=== PATIENT | female | born 1955 | race Caucasian/White ===

== ENCOUNTER → 2017-03-22 | Outpatient (CLI) | payer OTHER ==
[~2017-03-22] MED LIST: ALBU8.5H3 INH; ASPI1TAB30 PO; BISA-49 PO; DIAZ10TA4 PO; ESTR1.25 PO; GABA300C10 PO; LEVO88TA2 PO; LORA2TAB PO; MEPE100T14 PO; NA P133E2 PR; ONDA4TAB7 PO; ONDA8TAB9 PO; OXYC15TA PO; OXYC20TA2 PO; PRED10TA14 PO; phenergan PR
== END | disposition home or self-care (01) ==
LOC: CFH 07:21
PROVIDERS: ATTEND Internal Medicine
DX: K22.2 Esophageal obstruction (principal); K21.9 Gastro-esophageal reflux disease without esophagitis
CPT/HCPCS: 74247

== ENCOUNTER 2017-12-04 12:22 | Emergency (ER) | payer OTHER ==
[~2017-12-04] VITALS: Ht 167.6 cm; Wt 60.6 kg
[~2017-12-04 12:22] MED LIST changes: -ALBU8.5H3 INH; +ALBU8.5H8 INH; -ASPI1TAB30 PO; +ASPI1TAB31 PO
[2017-12-04] MEDS ORDERED: ONDANSETRON 2MG/ML, 2ML IVPush ONE (13:00)
[2017-12-04] MEDS ORDERED: SODIUM CHLORIDE 0.9% 1,000ML IVBOLUS ONE (13:00)
[2017-12-04] MEDS ORDERED: ONDANSETRON 2MG/ML, 2ML ONE (13:05)
[2017-12-04 13:08] LABS: BASOPHILS # (AUTO) 0.02 x10^3/uL (0-0.1); BASOPHILS % (AUTO) 0 % (0-1); EOSINOPHILS # (AUTO) 0.08 x10^3/uL (0-0.4); EOSINOPHILS % (AUTO) 1 % (1-7); LYMPHOCYTES # (AUTO) 1.74 x10^3/uL (1-3.4); LYMPHOCYTES % (AUTO) 24 % (22-44); MD NO; MEAN CORPUSCULAR HGB CONC 33.4 g/dL (32.4-35.8); MEAN CORPUSCULAR VOLUME 92.8 fL (80-100); MEAN PLATELET VOLUME 7.9 fL (7.4-10.4); MONOCYTES # (AUTO) 0.32 x10^3/uL (0.2-0.8); MONOCYTES % (AUTO) 4 % (2-9); NEUTROPHILS # (AUTO) 5.25 x10^3/uL (1.8-6.8); NEUTROPHILS % (AUTO) 71 % (42-75); PLATELET COUNT 233 x10^3/uL (130-400); RED BLOOD COUNT 4.34 x10^6/uL (3.82-5.3); RED CELL DISTRIBUTION WIDTH 14.8 % (9.6-15.2)
[2017-12-04 13:21] LABS: ALANINE AMINOTRANSFERASE 16 U/L (12-78); ANION GAP 9 mmol/L (5-15); CALCIUM 8.5 mg/dL (8.5-10.1); CHLORIDE 106 mmol/L (98-107)
[2017-12-04 13:26] LABS: ALKALINE PHOSPHATASE 61 U/L (45-117); BILIRUBIN,TOTAL 0.9 mg/dL (0.2-1.0); TROPONIN I < 0.015 ng/mL (0.000-0.045)
[2017-12-04 14:32] VITALS: BP 124/72
== END 2017-12-04 14:36 | disposition home or self-care (01) ==
LOC: ED 13:00
DX: T43.215A Adverse effect of selective serotonin and norepinephrine reuptake inhibitors, initial encounter (principal); E86.0 Dehydration; Y92.89 Other specified places as the place of occurrence of the external cause; J44.9 Chronic obstructive pulmonary disease, unspecified; I10 Essential (primary) hypertension; Z87.891 Personal history of nicotine dependence
CPT/HCPCS: 36415; 71045; 80053; 83690; 84484; 85025; 93005; 99285

== ENCOUNTER 2018-11-10 05:43 | Day surgery (SDC) | payer OTHER, MEDICARE ==
[~2018-11-10] VITALS: Ht 167.6 cm; Wt 64.0 kg
[2018-11-10] MEDS ORDERED: LACTATED RINGERS 1,000 ML IV SCH (06:15)
[2018-11-10 06:54] VITALS: BP 134/83
[2018-11-10] MEDS ORDERED: IRBE150T25 PO (07:06)
[2018-11-10] MEDS ORDERED: TIZA4CAP PO (07:06)
[2018-11-10] MEDS ORDERED: THYR90TA PO (07:06)
[2018-11-10] MEDS ORDERED: FENTANYL PF 100 MCG/2ML ONE (07:21)
[2018-11-10] MEDS ORDERED: MIDAZOLAM 1 MG/ML, 2ML ONE ×2 (07:22)
[2018-11-10] MEDS ORDERED: PROPOFOL 50 ML ONE (07:22)
[2018-11-10] MEDS ORDERED: FENTANYL PF 100 MCG/2ML IV PRN (08:00)
[2018-11-10] MEDS ORDERED: ACETAMINOPHEN 325 MG TABLET PO PRN (08:00)
[2018-11-10] MEDS ORDERED: hydrALAzine 20 MG/ML, 1ML IV PRN (08:00)
[2018-11-10] MEDS ORDERED: LABETALOL 5MG/ML, 20ML IV PRN (08:00)
[2018-11-10] MEDS ORDERED: ONDANSETRON 2MG/ML, 2ML IV PRN (08:00)
== END 2018-11-10 09:30 | disposition home or self-care (01) ==
LOC: OUT 05:43
PROVIDERS: ATTEND Internal Medicine Gastroenterology
DX: Z12.11 Encounter for screening for malignant neoplasm of colon (principal); K57.30 Diverticulosis of large intestine without perforation or abscess without bleeding; K64.8 Other hemorrhoids; K29.50 Unspecified chronic gastritis without bleeding; R13.10 Dysphagia, unspecified; F17.210 Nicotine dependence, cigarettes, uncomplicated; J44.9 Chronic obstructive pulmonary disease, unspecified; I10 Essential (primary) hypertension; M06.9 Rheumatoid arthritis, unspecified; Z88.5 Allergy status to narcotic agent; Z88.8 Allergy status to other drugs, medicaments and biological substances; Z79.899 Other long term (current) drug therapy; Z90.710 Acquired absence of both cervix and uterus; Z98.890 Other specified postprocedural states; Z80.0 Family history of malignant neoplasm of digestive organs; Z82.49 Family history of ischemic heart disease and other diseases of the circulatory system; Z83.3 Family history of diabetes mellitus; Z82.5 Family history of asthma and other chronic lower respiratory diseases
CPT/HCPCS: 43239; 43248; 45378; 88305; 93005; J2250; J2704; J3010; J7120

== ENCOUNTER 2018-11-15 07:04 | Emergency (ER) | payer OTHER, MEDICARE ==
[~2018-11-15] VITALS: Ht 167.6 cm; Wt 65.4 kg
[~2018-11-15 07:04] MED LIST changes: +IRBE150T25 PO; +THYR90TA PO; +TIZA4CAP PO
--- NOTE | 2018-11-15 07:54 | NUR ---
TO ROOM FROM LOBBY, VIA W/C
[2018-11-15 08:01] LABS: CULTURE INDICATED? NO; MICROSCOPIC NOT IND
[2018-11-15] MEDS ORDERED: OXYCODONE PO (08:10)
[2018-11-15 08:27] LABS: BASOPHILS # (AUTO) 0.05 x10^3/uL (0-0.1); BASOPHILS % (AUTO) 1 % (0-1); EOSINOPHILS # (AUTO) 0.21 x10^3/uL (0-0.4); EOSINOPHILS % (AUTO) 3 % (1-7); LYMPHOCYTES # (AUTO) 1.79 x10^3/uL (1-3.4); LYMPHOCYTES % (AUTO) 25 % (22-44); MD NO; MEAN CORPUSCULAR HEMOGLOBIN 30.4 pg (27.0-34.8); MEAN CORPUSCULAR VOLUME 92.1 fL (80-100); MEAN PLATELET VOLUME 8.9 fL (7.4-10.4); MONOCYTES # (AUTO) 0.31 x10^3/uL (0.2-0.8); MONOCYTES % (AUTO) 4 % (2-9); NEUTROPHILS # (AUTO) 4.73 x10^3/uL (1.8-6.8); NEUTROPHILS % (AUTO) 67 % (42-75); PLATELET COUNT 252 x10^3/uL (130-400); RED BLOOD COUNT 4.52 x10^6/uL (3.82-5.3); RED CELL DISTRIBUTION WIDTH 14.6 % (9.6-15.2)
[2018-11-15] MEDS ORDERED: SODIUM CHLORIDE FLUSH 10ML SYR IVF ONE (08:30)
[2018-11-15] MEDS ORDERED: ONDANSETRON 2MG/ML, 2ML IVPush ONE (08:30)
[2018-11-15] MEDS: HYDROmorphone 2 MG/ML, 1ML IVPush PRN ×2 (08:58→09:20)
[2018-11-15 09:00] LABS: ALANINE AMINOTRANSFERASE 20 U/L (12-78); ALBUMIN 4.3 g/dL (3.4-5.0); ANION GAP 7 mmol/L (5-15); CALCIUM 9.3 mg/dL (8.5-10.1); CHLORIDE 112 mmol/L (98-107); CREATININE 0.78 mg/dL (0.55-1.02)
[2018-11-15 09:02] LABS: ALKALINE PHOSPHATASE 74 U/L (45-117); BILIRUBIN,TOTAL 0.5 mg/dL (0.2-1.0); TOTAL PROTEIN 7.1 g/dL (6.4-8.2)
--- NOTE | 2018-11-15 09:08 | NUR ---
IV ESTABLISHED AND PT MED NOTED FOR ABD PAIN. CALL LIGHT W/I REACH
--- NOTE | 2018-11-15 09:19 | NUR ---
PT WANTS PAIN MEDS BEFORE CT
[2018-11-15] MEDS ORDERED: OMNIPAQUE 350 MG/ML, 100ML BOTTLE ONE (09:42)
[2018-11-15] MEDS ORDERED: HYDROmorphone 2 MG/ML, 1ML ONE (10:18)
[2018-11-15] MEDS ORDERED: MAALOX/HYOSCYAMINE/LIDOCAINE 45 ML BTL ONE (10:18)
[2018-11-15 10:26] VITALS: BP 168/105
[2018-11-15] MEDS ORDERED: HYDROmorphone 2 MG/ML, 1ML IVPush PRN (10:30)
[2018-11-15] MEDS ORDERED: MAALOX/HYOSCYAMINE/LIDOCAINE 45 ML BTL PO ONE (10:30)
--- NOTE | 2018-11-15 10:30 | NUR ---
Patient/Caregiver given discharge instructions and they have confirmed that they understand the instructions. Patient ambulatory with steady gait.
== END 2018-11-15 10:30 | disposition home or self-care (01) ==
LOC: ED 08:54
DX: R10.31 Right lower quadrant pain (principal); R10.32 Left lower quadrant pain; I10 Essential (primary) hypertension; J44.9 Chronic obstructive pulmonary disease, unspecified; Z98.890 Other specified postprocedural states; Z90.710 Acquired absence of both cervix and uterus; Z90.49 Acquired absence of other specified parts of digestive tract
CPT/HCPCS: 36415; 74177; 80053; 81003; 83690; 85025; 93005; 96374; 96375; 96376; 99284; J1170; J2405; Q9967

== ENCOUNTER → 2018-12-21 | Outpatient (CLI) | payer OTHER, MEDICARE ==
[~2018-12-21] MED LIST changes: +GADOBUTROL 7.5 MMOL/7.5 ML PFS ONE; +OXYCODONE PO
== END | disposition home or self-care (01) ==
LOC: CFH 10:15
PROVIDERS: ATTEND Internal Medicine
DX: R22.1 Localized swelling, mass and lump, neck (principal)
CPT/HCPCS: 70543; A9585

== ENCOUNTER 2021-07-21 12:28 | Outpatient (CLI) | payer MEDICARE ==
[~2021-07-21 12:28] MED LIST changes: -GADOBUTROL 7.5 MMOL/7.5 ML PFS ONE; -IRBE150T25 PO; +IRBE150T9 PO; -OXYC15TA PO; +OXYC15TA3 PO
[2021-07-21] MEDS ORDERED: OMNIPAQUE 350 MG/ML, 100ML BOTTLE ONE (13:42)
== END 2021-07-21 23:59 | disposition home or self-care (01) ==
LOC: CFH 12:28
PROVIDERS: ATTEND Internal Medicine
DX: R22.1 Localized swelling, mass and lump, neck (principal); R10.816 Epigastric abdominal tenderness
CPT/HCPCS: 70491; 74177; 82565; Q9967